=== PATIENT | female | born 1985 | race Caucasian/White ===

== ENCOUNTER 2016-07-25 08:25 | Emergency (ER) | payer BC ==
[~2016-07-25] VITALS: Ht 160 cm; Wt 113.4 kg
[~2016-07-25 08:25] MED LIST: HYDR-3454 PO; NAPR-689 PO; NF-PREG50C PO; TRM50T PO; VITA1CAP59 PO
--- OUTSIDE RECORDS SUMMARY | 2016-07-25 08:31 | XMS REPORT | Continuity of Care Document ---
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 Name Role Phone MARY D, [facility] ST[facility]ENT [facility] PCP Insurance Providers Payer Name Policy Number Subscriber Name Relationship [facility] [id number] Michelle Holley 18 Self / Same As Patient Advance Directives Directive Response Recorded Date/Time Advance Directives No 12/19/14 6:15pm Health Care Power of Regional Ehs Manager No 12/15/14 6:18am Organ Donor Yes 12/19/14 6:15pm Resuscitation Status Full Code 12/19/14 6:15pm Problems Medical Problems Problem Onset Date Status Acute dyspnea Unknown Active Medications Medication Dose Route Sig Days/Qty Instructions Order Date Discontinued Date Status Tramadol HCl 50 Mg PO EVERY 6 HOURS PRN PAIN 60 Qty 10/01/13 Active Pregabalin 50 Mg PO TWICE A DAY 12/05/14 Active Vitamin B Complex 1 Cap PO DAILY 0 Qty 12/15/14 Active Hydrocodone Bit/Acetaminophen Unknown Dose PO FOUR TIMES DAILY PRN PAIN 12/19/14 Active Social History Social History Problem Response Recorded Date/Time Alcohol Use Denies Use 12/19/2014 6:15pm Recreational Drug Use No 12/19/2014 6:15pm Recent Foreign Travel No 09/30/2013 3:12pm Recent Infectious Disease Exposure No 09/30/2013 3:12pm Hospitalization with Isolation Denies 12/19/2014 6:15pm Smoking Status Never a Smoker 12/19/2014 6:15pm Query Response Start Date Stop Date Smoking Status Never a Smoker Hospital Discharge Instructions No hospital discharge instructions. Plan of Care No plan of care. Functional Status No functional status results. Allergies, Adverse Reactions, Alerts Allergen Type Severity Reaction Status Last Updated Penicillins ([id number]) Allergy Unknown A CHILD, DOESN'T KNOW REACTION Active 09/27/13 Sulfa (Sulfonamide Antibiotics) ([id number]) Allergy Unknown A CHILD, DOESN'T KNOW REACTION Active 09/27/13 Immunizations Name Given Type Hepatitis A No Historical Hepatitis B No Historical Tetanus Booster (TDap) Unknown Historical Vital Signs Acute Vital Signs Vital Response Date/Time Temperature (Fahrenheit) 98 degrees F (97.6 - 99.5) Temperature (Calculated Celsius) 36.6696 degrees C (36.4 - 37.5) Temperature Source Temporal Pulse Rate (adult) 102 bpm (60 - 90) Respiratory Rate 20 bpm (12 - 24) O2 Sat by Pulse Oximetry 99 % (88 - 100) Blood Pressure 148/102 mm Hg Pain Pain Intensity 5 Height (Feet) 5 feet Height (Inches) 3 inches Height (Calculated Centimeters) 160.238414 cm Weight (Pounds) 250 pounds Weight (Calculated Grams) 281110.088 gm Weight (Calculated Kilograms) 113.083075 kilograms Calculated BMI 44.28 Results Laboratory Results Test Name Result Units Flags Reference Collection Date/Time Result Date/ Time Comments White Blood Count 8.7 10^3/uL 4.3-11.0 12/19/2014 7:11pm 12/19/2014 7: 21pm Red Blood Count 4.79 10^6/uL 4.35-5.85 12/19/2014 7:11pm 12/19/2014 7: 21pm Hemoglobin 13.6 G/DL 11.5-16.0 12/19/2014 7:11pm 12/19/2014 7:21pm Hematocrit 42 % 35-52 12/19/2014 7:11pm 12/19/2014 7:21pm Mean Corpuscular Volume 88 FL 80-99 12/19/2014 7:11pm 12/19/2014 7: 21pm Mean Corpuscular Hemoglobin 28 PG 25-34 12/19/2014 7:12/19/2014 7: 21pm Mean Corpuscular Hemoglobin Concent 32 G/DL 32-36 12/19/2014 7:11/2014 7:21pm Red Cell Distribution Width 13.2 % 10.0-14.5 12/19/2014 7:2014 7:21pm Platelet Count 404 10^3/uL H 130-400 12/19/2014 7:12/19/2014 7:21pm Mean Platelet Volume 9.8 FL 7.4-10.4 12/19/2014 7:12/19/2014 7: 21pm Neutrophils (%) (Auto) 51 % 42-75 12/19/2014 7:12/19/2014 7:21pm Lymphocytes (%) (Auto) 39 % 12-44 12/19/2014 7:12/19/2014 7:21pm Monocytes (%) (Auto) 6 % 0-12 12/19/2014 7:12/19/2014 7:21pm Eosinophils (%) (Auto) 3 % 0-10 12/19/2014 7:12/19/2014 7:21pm Basophils (%) (Auto) 1 % 0-10 12/19/2014 7:12/19/2014 7:21pm Neutrophils # (Auto) 4.4 X 10^3 1.8-7.8 12/19/2014 7:12/19/2014 7: 21pm Lymphocytes # (Auto) 3.4 X 10^3 1.0-4.0 12/19/2014 7:12/19/2014 7: 21pm Monocytes # (Auto) 0.5 X 10^3 0.0-1.0 12/19/2014 7:12/19/2014 7: 21pm Eosinophils # (Auto) 0.3 10^3/uL 0.0-0.3 12/19/2014 7:12/19/2014 7 :21pm Basophils # (Auto) 0.0 10^3/uL 0.0-0.1 12/19/2014 7:12/19/2014 7: 21pm Prothrombin Time 12.6 SEC 12.2-14.7 12/19/2014 7:1112/19/2014 7: 37pm INR Comment 1.0 0.8-1.4 12/19/2014 7:12/19/2014 7:37pm INTERPRETIVE DATA SUGGESTED THERAPEUTIC RANGE FOR INR'S: VENOUS THROMBOSIS, PULMONARY EMBOLISM, OR PREVENTION OF SYSTEMIC EMBOLISM (EG. IN ATRIAL FIBRILLATION): 2.0 - 3.0 MECHANICAL PROSTHETIC HEART VALVES: 2.5 - 3.5* *NOTE: INR'S UP TO 4.5 MAY BE NECESSARY IN SELECTED GROUPS OF HIGH RISK PATIENTS. [place] [employer] [place] [employer] CONSENSUS CONFERENCE ON ANTITHROMBOTIC THERAPY (2000). Activated Partial Thromboplast Time 27 SEC 24-35 12/19/2014 7:1111/2014 7:37pm D-Dimer 0.50 UG/ML H 0.00-0.49 12/19/2014 7:12/19/2014 7:37pm Sodium Level 139 MMOL/L 135-145 12/19/2014 7:12/19/2014 7:42pm Potassium Level 3.9 MMOL/L 3.6-5.0 12/19/2014 7:12/19/2014 7:42pm Chloride Level 106 MMOL/L 98-107 12/19/2014 7:12/19/2014 7:42pm Carbon Dioxide Level 23 MMOL/L 21-32 12/19/2014 7:12/19/2014 7: 42pm Blood Urea Nitrogen 7 MG/DL 7-18 12/19/2014 7:12/19/2014 7:42pm Creatinine 0.88 MG/DL 0.60-1.30 12/19/2014 7:12/19/2014 7:42pm BUN/Creatinine Ratio 8 12/19/2014 7:12/19/2014 7:42pm Estimat Glomerular Filtration Rate > 60 12/19/2014 7:2014 7:42pm GFR INTERPRETIVE DATA UNITS FOR ESTIMATED GFR (eGFR): mL/min/1.73 M2 REFERENCE RANGE FOR ESTIMATED GFR (eGFR) eGFR NORMAL eGFR >60 MODERATELY DECREASED eGFR 30-59 SEVERLY DECREASED eGFR 15-29 KIDNEY FAILURE <15 (OR DIALYSIS) Glucose Level 86 MG/DL 70-105 12/19/2014 7:12/19/2014 7:42pm Calcium Level 9.9 MG/DL 8.5-10.1 12/19/2014 7:11pm 12/19/2014 7:42pm Total Bilirubin 0.4 MG/DL 0.1-1.0 12/19/2014 7:11pm 12/19/2014 7:42pm Alkaline Phosphatase 68 U/L 40-136 12/19/2014 7:11pm 12/19/2014 7:42pm Aspartate Amino Transf (AST/SGOT) 44 U/L H 5-34 12/19/2014 7:11pm 2014 7:42pm Alanine Aminotransferase (ALT/SGPT) 62 U/L H 0-55 12/19/2014 7:11pm 12/19 7:42pm Troponin I < 0.30 NG/ML <0.30 12/19/2014 7:11pm 12/19/2014 7:49pm B-Type Natriuretic Peptide < 10.0 PG/ML <100.0 12/19/2014 7:11pm 2014 7:48pm Total Protein 7.6 G/DL 6.4-8.2 12/19/2014 7:11pm 12/19/2014 7:42pm Albumin 4.2 G/DL 3.2-4.5 12/19/2014 7:11pm 12/19/2014 7:42pm Procedures Procedure Status Date Provider(s) IMPLANT NEUROELECTRODES completed 12/15/14 ANA TALBOT MD Tracing only of electrocardiogram completed 12/19/14 HUE GAMEZ MD Encounters Encounter Location Date/Time Departed Emergency Room [facility] 12/19/14 5:47pm Registered Clinic [facility] 12/17/14 11:14am Registered [facility] 12/15/14 6:18am Registered Clinic [facility] 12/05/14 8:06am Recent Diagnosis
[2016-07-25] MEDS ORDERED: TOPI100T11 (09:38)
[2016-07-25] MEDS ORDERED: DULO60CA58 (09:38)
[2016-07-25] MEDS ORDERED: [UNRECOGNIZED DRUG - CODE] IJ (09:38)
[2016-07-25] MEDS ORDERED: ONDA4TAB11 (09:38)
[2016-07-25] MEDS ORDERED: TIZA4CAP8 (09:38)
--- NOTE | 2016-07-25 12:46 | ED EENT ---
History of Present Illness General Chief Complaint: Laceration Stated Complaint: NEEDS LIP GLUED Nursing Triage Note: PT'S CAT SCRATCHED HER ON LIP THIS AM. STATES IT KEEPS SPLITTING. Source: patient Exam Limitations: no limitations History of Present Illness Time seen by provider: 12:41 Initial Comments The patient is a 30-year-old white female who presents with a laceration to the left upper lip. She believes that this happened during sleep and somehow involved her cat. She is not able to keep it from bleeding at this point. Allergies and Home Medications Allergies Coded Allergies: Penicillins (Verified Allergy, Unknown, A CHILD, DOESN'T KNOW REACTION , 09/27/13) Sulfa (Sulfonamide Antibiotics) (Verified Allergy, Unknown, A CHILD, DOESN'T KNOW REACTION, 09/27/13) Home Medications Cyanocobalamin (Vitamin B-12) 1,000 Mcg/1 Ml Kit 1,000 MCG IJ WEEK (Reported) Duloxetine HCl 60 Mg Capsule.dr #30 (Reported) Ondansetron 4 Mg Tab.rapdis #100 (Reported) Tizanidine HCl 4 Mg Capsule #180 (Reported) Topiramate 100 Mg Tablet #60 (Reported) Review of Systems Constitutional: no symptoms reported Past Egdhzbu-Hhpiel-Naehnn Hx Patient Social History Alcohol Use: Rarely Uses Recreational Drug Use: No Smoking Status: Never a Smoker Recent Foreign Travel: No Contact w/Someone Who Travel: No Recent Infectious Disease Expo: No Recent Hopitalizations: No Physical Abuse Screen: No Sexual Abuse: No Immunizations Up To Date Tetanus Booster (TDap): Unknown PED Vaccines UTD: No Seasonal Allergies Seasonal Allergies: No Surgeries HX Surgeries: Yes (L FOOT, SPINAL STIMULATOR) Respiratory Hx Respiratory Disorders: No Cardiovascular Hx Cardiac Disorders: No Neurological Hx Neurological Disorders: No Reproductive System : No Hx Reproductive Disorders: No Genitourinary Hx Genitourinary Disorders: No Gastrointestinal Hx Gastrointestinal Disorders: No Musculoskeletal Hx Musculoskeletal Disorders: No Musculoskeletal Disorders: Rheumatoid Arthritis, Chronic Back Pain Endocrine Hx Endocrine Disorders: No HEENT HX ENT Disorders: No Cancer Hx Cancer: No Psychosocial Hx Psychiatric Problems: No Integumentary HX Skin/Integumentary Disorder: No Blood Transfusions Hx Blood Disorders: No Family Medical History Family Medial History: Patient reports no known family medical history. Physical Exam Vital Signs Vital Sign - Last 12Hours 07/25/16 09:31 Temp 100.2 Pulse 82 Resp 18 B/P 140/93 Pulse Ox 100 O2 Delivery Room Air General Appearance: WD/WN cachetic mild distress moderate distress no apparent distress severe distress Mouth/Throat: other Cardiovascular: normal peripheral pulses regular rate, rhythm no edema no gallop no JVD no murmur There is a 1/2 cm vertically oriented laceration to the left of center on the upper lip. It crosses the vermilion border. Progress/Results/Core Measures Results/Orders Vital Signs/I&O Vital Sign - Last 12Hours 07/25/16 09:31 Temp 100.2 Pulse 82 Resp 18 B/P 140/93 Pulse Ox 100 O2 Delivery Room Air Blood Pressure Mean: 109 Departure Communication Progress Notes As the lip cracked and bled with opening the mouth or brushing the teeth it was elected to put 1 5-0 Prolene suture in this with out anesthetic. This was accomplished with good approximation. Impression Impression: Primary Impression: laceration left upper lip Disposition: 01 HOME, SELF-CARE Condition: Improved Departure-Patient Inst. Decision time for Depature: 12:45 Referrals: [facility] (PCP) Primary Care Physician Patient Instructions: Laceration Repair With Stitches (DC) Add. Discharge Instructions: All discharge instructions reviewed with patient and/or family. Voiced understanding. Suture removal in 5-7 days Images Mouth/Nose 1 - GREG MONTIEL MD Jul 25, 2016 12:46
[2016-07-25 12:49] VITALS: BP 135/87
== END 2016-07-25 12:49 | disposition home or self-care (01) ==
LOC: EDUNIT# 08:25 → ER 08:28
DX: S01.511A Laceration without foreign body of lip, initial encounter (principal); W55.03XA Scratched by cat, initial encounter; Y92.009 Unspecified place in unspecified non-institutional (private) residence as the place of occurrence of the external cause; Y99.8 Other external cause status
CPT/HCPCS: 12011

== ENCOUNTER 2017-12-22 19:01 | Emergency (ER) | payer OTHER ==
[~2017-12-22] VITALS: Ht 160 cm; Wt 113.4 kg
[~2017-12-22 19:01] MED LIST changes: +DULO60CA58; +ONDA4TAB11; +TIZA4CAP8; +TOPI100T11; +[UNRECOGNIZED DRUG - CODE] IJ
--- NOTE | 2017-12-22 21:35 | ED Lower Extremity ---
General Chief Complaint: Lower Extremity Stated Complaint: L ANKLE INJ Nursing Triage Note: Fell off of curb at 1850. [place] left ankle pop. Left ankle swollen Nursing Sepsis Screen: No Definite Risk Source: patient Exam Limitations: no limitations History of Present Illness Date Seen by Provider: Dec 22, 2017 Time Seen by Provider: 21:32 Initial Comments to ER with left lateral ankle pain and swelling. She stepped down off a curb and inverted the left ankle. She has a history of resection of the proximal half of the fifth metatarsal and subsequent complex regional pain syndrome in that foot with bluish discoloration of the skin as a result. Onset: just prior to arrival Severity: moderate Pain/Injury Location: left ankle Modifying Factors: Worse With Movement Allergies and Home Medications Allergies Coded Allergies: Penicillins (Verified Allergy, Unknown, A CHILD, DOESN'T KNOW REACTION , 12/22/17) Sulfa (Sulfonamide Antibiotics) (Verified Allergy, Unknown, A CHILD, DOESN'T KNOW REACTION, 09/27/13) Home Medications Cyanocobalamin (Vitamin B-12) 1,000 Mcg/1 Ml Kit, 1,000 MCG IJ WEEK, (Reported) Patient Home Medication List Home Medication List Reviewed: Yes Constitutional: see HPI EENTM: see HPI Respiratory: no symptoms reported Cardiovascular: no symptoms reported Genitourinary: no symptoms reported Musculoskeletal: no symptoms reported Skin: no symptoms reported Psychiatric/Neurological: No Symptoms Reported Past Wxhkpjg-Kgkevo-Dskbhn Hx Patient Social History Alcohol Use: Rarely Uses Recreational Drug Use: No Smoking Status: Never a Smoker Recent Foreign Travel: No Contact w/Someone Who Travel: No Recent Infectious Disease Expo: No Recent Hopitalizations: No Immunizations Up To Date Tetanus Booster (TDap): Unknown PED Vaccines UTD: No Seasonal Allergies Seasonal Allergies: No Past Medical History Surgeries: Yes (L FOOT, ) Respiratory: No Cardiac: No Neurological: No Reproductive Disorders: No Gastrointestinal: No Musculoskeletal: No (CRPS) Rheumatoid Arthritis, Chronic Back Pain Endocrine: No Cancer: No Psychosocial: No Integumentary: No Blood Disorders: No Family Medical History Patient reports no known family medical history. Physical Exam Vital Signs Vital Signs - First Documented 12/22/17 20:21 Temp 98.0 Pulse 105 Resp 15 B/P (MAP) 144/89 (107) Pulse Ox 100 Capillary Refill : Less Than 3 Seconds General Appearance: WD/WN, no apparent distress HEENT: PERRL/EOMI, normal ENT inspection Neck: non-tender, full range of motion Respiratory: no respiratory distress, no accessory muscle use Gastrointestinal: normal bowel sounds, non tender Hips: bilateral hip non-tender, bilateral hip normal inspection, bilateral hip normal range of motion Legs: bilateral leg non-tender, bilateral leg normal inspection, bilateral leg normal range of motion, bilateral leg no evidence of injury, bilateral leg abrasions, bilateral leg bone tenderness, bilateral leg deformity, bilateral leg ecchymosis, bilateral leg joint effusion, bilateral leg limited range of motion, bilateral leg nodules, bilateral leg pain, bilateral leg soft tissue tenderness, bilateral leg swelling, bilateral leg other Knees: bilateral knee non-tender, bilateral knee normal inspection, bilateral knee normal range of motion, bilateral knee no evidence of injury, bilateral knee bone tenderness, bilateral knee deformity, bilateral knee ecchymosis, bilateral knee joint effusion, bilateral knee nodules, bilateral knee nodules, bilateral knee pain, bilateral knee soft tissue tenderness, bilateral knee swelling, bilateral knee other Ankles: left ankle pain, left ankle soft tissue tenderness, left ankle swelling Neurologic/Psychiatric: alert, normal mood/affect Skin: normal color, warm/dry Comments mottling of the skin to the left foot but she maintains capillary refill about 3 seconds. She states this is normal for her in that foot. There is an incision that is healed to the lateral aspect of the left foot Progress/Results/Core Measures Results/Orders My Orders Orders - BRENT STEEN APRN Hydrocodone/Apap 5/325 Tablet (Lortab 5 (12/22/17 21:45) Ankle, Left, 3 Views (12/22/17 21:32) Vital Signs/I&O 12/22/17 20:21 Temp 98.0 Pulse 105 Resp 15 B/P (MAP) 144/89 (107) Pulse Ox 100 Blood Pressure Mean: 107 Departure Impression Primary Impression: Ankle sprain Disposition: 01 HOME, SELF-CARE Condition: Stable Departure-Patient Inst. Decision time for Depature: 22:16 Referrals: CARLOTA PRIETO DO (PCP) Primary Care Physician Patient Instructions: Ankle Sprain (DC) Add. Discharge Instructions: 1. Return to ER for any concerns 2. Follow-up with your doctor next week 3. Use the crutches as needed when walkingAll discharge instructions reviewed with patient and/or family. Voiced understanding. BRENT STEEN VEGETABLE GRADER Dec 22, 2017 21:35
[2017-12-22] MEDS ORDERED: HYDROcodone/APAP 5 MG/325 MG (LORTAB) TAB PO ONE (21:45)
[2017-12-22 22:28] VITALS: BP 144/89
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
== END 2017-12-22 22:28 | disposition home or self-care (01) ==
LOC: EDUNIT# 19:01 → ER 19:03
DX: S93.402A Sprain of unspecified ligament of left ankle, initial encounter (principal); M06.9 Rheumatoid arthritis, unspecified; Z88.0 Allergy status to penicillin; Z88.2 Allergy status to sulfonamides; W10.1XXA Fall (on)(from) sidewalk curb, initial encounter
CPT/HCPCS: 73610

== ENCOUNTER → 2017-12-29 | Outpatient (REF) ==
--- NOTE | 2017-12-29 11:46 | Diagnostic Imaging Report ---
INDICATION: Fall. Pain. COMPARISON: None. FINDINGS: Three views of the left foot were obtained. No acute fracture, malalignment, or osseous destructive process is seen. There is mild plantar calcaneal spurring. IMPRESSION: No acute abnormality is seen. There is mild plantar calcaneal spurring. Dictated by: Dictated on workstation # [id number]
== END | disposition home or self-care (01) ==
LOC: OCC 11:20
PROVIDERS: ATTEND Nurse Practitioner Family
CPT/HCPCS: 73630

== ENCOUNTER → 2019-02-06 | Outpatient (CLI) | payer OTHER ==
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
== END ==
LOC: RAD 13:06
PROVIDERS: ATTEND Nurse Practitioner Family
DX: M50.221 Other cervical disc displacement at C4-C5 level (principal); M48.02 Spinal stenosis, cervical region; R51 Headache; R11.0 Nausea; V89.2XXA Person injured in unspecified motor-vehicle accident, traffic, initial encounter
CPT/HCPCS: 70551; 72141

== ENCOUNTER → 2019-02-20 | Outpatient (CLI) | payer OTHER ==
[~2019-02-20] MED LIST changes: -DULO60CA58; +DULO60CA59
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
== END ==
LOC: RAD 10:47
PROVIDERS: ATTEND Nurse Practitioner Family
DX: M25.511 Pain in right shoulder (principal); V89.2XXA Person injured in unspecified motor-vehicle accident, traffic, initial encounter
CPT/HCPCS: 73030

== ENCOUNTER → 2019-04-10 | Outpatient (CLI) | payer OTHER ==
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
== END ==
LOC: RAD 14:49
PROVIDERS: ATTEND Family Medicine
DX: M25.511 Pain in right shoulder (principal)
CPT/HCPCS: 73221

== ENCOUNTER → 2019-04-18 | Outpatient (CLI) | payer BC, OTHER | LOC: RAD 08:54 | PROVIDERS: ATTEND Family Medicine | DX: M79.601 Pain in right arm (principal); Z53.8 Procedure and treatment not carried out for other reasons ==

== ENCOUNTER → 2019-04-18 | Outpatient (CLI) | payer BC ==
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
== END ==
LOC: RAD 08:54
PROVIDERS: ATTEND Internal Medicine Endocrinology, Diabetes & Metabolism
DX: M25.511 Pain in right shoulder (principal); V89.2XXA Person injured in unspecified motor-vehicle accident, traffic, initial encounter
CPT/HCPCS: 73030

== ENCOUNTER → 2019-04-23 | Outpatient (CLI) | payer BC ==
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
== END ==
LOC: RAD 08:44
PROVIDERS: ATTEND Family Medicine
DX: M79.601 Pain in right arm (principal); M25.511 Pain in right shoulder
CPT/HCPCS: 73060